=== PATIENT | male | born 1985 | race Caucasian/White ===

== ENCOUNTER 2022-04-14 15:58 | Inpatient (IN) | payer BC ==
[2022-04-14] MEDS ORDERED: SODIUM CHLORIDE 0.9% 500 ML INFUS.BAG IV ONE (17:08)
[2022-04-14] MEDS ORDERED: FAMOTIDINE 20 MG/50 ML IVPB 20 MG/50 ML MG IVPB ONE ×2 (17:09→17:39)
[2022-04-14 18:52] LABS: BASO % 0.8 % (0-2.0); EOS % 2.2 % (0-4.5); HEMOGLOBIN 15.1 GM/dL (11.7-16.9); LYMPH % 21.4 % (8-40); MCH 27.3 pg (25.7-33.7); MCHC 35.1 g/dl (32.0-35.9); MEAN CELL VOLUME 77.7 fl (80-96); MEAN PLT VOLUME 7.2 fl (7.5-11.1); MONO % 5.7 % (3.8-10.2); NEUT % 69.9 % (42.8-82.8); PLATELET COUNT 236 10^3/uL (134-434); RBC 5.53 M/mm3 (4.00-5.60); WHITE BLOOD COUNT 6.3 K/mm3 (4.0-10.0)
[2022-04-14 18:58] LABS: EPI CELLS 1 /uL (0-25.1); HYALINE CASTS 0 /uL (0-3.1); PH,URINE 6.5 (5.0-8.0); URINE APPEARANCE CLEAR; URINE BACTERIA 2 /uL (0-1359); URINE BILIRUBIN NEGATIVE (NEGATIVE); URINE COLOR YELLOW; URINE GLUCOSE (UA) NEGATIVE (NEGATIVE); URINE KETONE NEGATIVE (NEGATIVE); URINE LEUK ESTERASE NEGATIVE (NEGATIVE); URINE NITRITE NEGATIVE (NEGATIVE); URINE PROTEIN 1+ (NEGATIVE); URINE RBC 3 /uL (0-23.9); URINE UROBILINOGEN 0.2 mg/dL (0.2-1.0); URINE WBC 1 /uL (0-25.8)
[2022-04-14 19:14] LABS: ALBUMIN 4.4 g/dl (3.4-5.0); BLOOD UREA NITROGEN 14.1 mg/dL (7-18)
[2022-04-14 19:17] LABS: CREATININE 0.7 mg/dL (0.55-1.3)
[2022-04-14 19:18] LABS: BILIRUBIN,TOTAL 0.8 mg/dL (0.2-1); TOT PROT 8.2 g/dl (6.4-8.2)
[2022-04-14] MEDS ORDERED: ACETAMINOPHEN 1000 MG/100 ML BAG IVPB ONE (23:01)
[2022-04-14] MEDS ORDERED: morphine CARPU-JECT 4 MG/1 ML DISP.SYRIN IVPUSH ONE (23:02)
[2022-04-14] MEDS ORDERED: ACETAMINOPHEN INJECTION 100 ML IVPB ONE (23:05)
[2022-04-15] MEDS ORDERED: SODIUM CHLORIDE 0.9% 500 ML INFUS.BAG IV ONE (00:53)
[2022-04-15] MEDS: SODIUM CHLORIDE 1,000 ML IV SCH ×2 (03:27→10:59)
[2022-04-15 04:07] VITALS: BMI 30.7
[2022-04-15] MEDS ORDERED: ENOXAPARIN NA (PORCINE) 40 MG/0.4 ML DISP.SYRIN SQ SCH (10:00)
[2022-04-15 10:40] LABS: BASO % 0.7 % (0-2.0); EOS % 3.2 % (0-4.5); HEMATOCRIT 36.5 % (35.4-49); HEMOGLOBIN 12.7 GM/dL (11.7-16.9); LYMPH % 14.3 % (8-40); MCH 27.3 pg (25.7-33.7); MCHC 34.8 g/dl (32.0-35.9); MEAN CELL VOLUME 78.3 fl (80-96); MEAN PLT VOLUME 6.9 fl (7.5-11.1); MONO % 6.3 % (3.8-10.2); NEUT % 75.5 % (42.8-82.8); PLATELET COUNT 183 10^3/uL (134-434); RBC 4.66 M/mm3 (4.00-5.60); RDW 13.6 % (11.9-15.9); WHITE BLOOD COUNT 4.7 K/mm3 (4.0-10.0)
[2022-04-15 11:08] LABS: CALCIUM 8.7 mg/dL (8.5-10.1)
[2022-04-15 11:09] LABS: MAGNESIUM 2.1 mg/dL (1.8-2.4)
[2022-04-15 11:10] LABS: BLOOD UREA NITROGEN 11.2 mg/dL (7-18)
[2022-04-15 11:12] LABS: CREATININE 0.7 mg/dL (0.55-1.3); PHOSPHOROUS 2.8 mg/dL (2.5-4.9)
[2022-04-15 11:13] LABS: BILIRUBIN,TOTAL 0.5 mg/dL (0.2-1); TOT PROT 6.6 g/dl (6.4-8.2)
[2022-04-15 11:17] LABS: ALBUMIN 3.4 g/dl (3.4-5.0)
[2022-04-15 11:23] LABS: ERYTHROCYTE SEDIMENTATION RATE 59 mm/hr (0-10)
[2022-04-15] MEDS ORDERED: ACETAMINOPHEN 1000 MG/100 ML BAG IVPB PRN (17:11)
[2022-04-16] MEDS: SODIUM CHLORIDE 1,000 ML IV SCH ×2 (03:48→17:05)
[2022-04-16 08:58] VITALS: BP 124/69; PULSE 90; TEMP 98.1
[2022-04-16 09:52] LABS: BASO % 0.8 % (0-2.0); EOS % 3.1 % (0-4.5); HEMATOCRIT 37.4 % (35.4-49); HEMOGLOBIN 12.8 GM/dL (11.7-16.9); LYMPH % 16.8 % (8-40); MCH 26.8 pg (25.7-33.7); MCHC 34.1 g/dl (32.0-35.9); MEAN CELL VOLUME 78.6 fl (80-96); MEAN PLT VOLUME 7.3 fl (7.5-11.1); MONO % 4.6 % (3.8-10.2); NEUT % 74.7 % (42.8-82.8); PLATELET COUNT 204 10^3/uL (134-434); RBC 4.76 M/mm3 (4.00-5.60); RDW 13.8 % (11.9-15.9); WHITE BLOOD COUNT 4.1 K/mm3 (4.0-10.0)
[2022-04-16 10:15] LABS: BLOOD UREA NITROGEN 6.1 mg/dL (7-18); CALCIUM 8.9 mg/dL (8.5-10.1)
[2022-04-16 10:18] LABS: CREATININE 0.8 mg/dL (0.55-1.3)
[2022-04-16 11:52] LABS: CALCIUM 8.6 mg/dL (8.5-10.1)
[2022-04-16 11:53] LABS: ALBUMIN 3.5 g/dl (3.4-5.0); BLOOD UREA NITROGEN 5.4 mg/dL (7-18)
[2022-04-16 11:56] LABS: CREATININE 0.6 mg/dL (0.55-1.3)
[2022-04-16 11:58] LABS: BILIRUBIN,TOTAL 0.3 mg/dL (0.2-1); TOT PROT 6.9 g/dl (6.4-8.2)
[2022-04-19 16:08] LABS: ATYPICAL pANCA <1:20 titer (Neg:<1:20); C-ANCA <1:20 titer (Neg:<1:20)
== END 2022-04-16 18:57 | disposition home or self-care (01) | DRG 393 ==
LOC: JER 15:58 → JERBED 23:31 → J6S 04-15 02:22
PROVIDERS: ADMIT Hospitalist; ATTEND Internal Medicine
DX: K62.89 Other specified diseases of anus and rectum (principal); K85.90 Acute pancreatitis without necrosis or infection, unspecified; K64.4 Residual hemorrhoidal skin tags; K52.9 Noninfective gastroenteritis and colitis, unspecified; R74.8 Abnormal levels of other serum enzymes; K76.0 Fatty (change of) liver, not elsewhere classified
CPT/HCPCS: 36415; 74176-TC; 74182-TC; 76705-TC; 80048; 80053; 80061; 81003; 82272; 83520; 83540; 83550; 83631; 83690; 83735; 83993; 84100; 85025; 85651; 86140; 86256; 86671; 87086; 87324; 87449; 93005; 93010; 99285-25; A9579; C9803-CS; U0003; U0005

== ENCOUNTER 2023-06-01 11:43 | Day surgery (SDC) | payer BC ==
[2023-05-25 12:08] VITALS: BMI 32.5
[2023-06-01 14:22] VITALS: TEMP 98.1
[2023-06-01 14:26] VITALS: BP 117/69; PULSE 69; RESP 19
== END 2023-06-01 14:35 | disposition home or self-care (01) ==
LOC: FASU-ENDO 11:43
PROVIDERS: ATTEND Internal Medicine Gastroenterology
PROC: 0DBL8ZX Excision of Transverse Colon, Via Natural or Artificial Opening Endoscopic, Diagnostic (ICD-10-PCS; 2023-06-01)
PROC: 0DBN8ZX Excision of Sigmoid Colon, Via Natural or Artificial Opening Endoscopic, Diagnostic (ICD-10-PCS; 2023-06-01)
PROC: 0DBP8ZX Excision of Rectum, Via Natural or Artificial Opening Endoscopic, Diagnostic (ICD-10-PCS; 2023-06-01)
PROC: 0DBM8ZX Excision of Descending Colon, Via Natural or Artificial Opening Endoscopic, Diagnostic (ICD-10-PCS; 2023-06-01)
PROC: 0DBK8ZX Excision of Ascending Colon, Via Natural or Artificial Opening Endoscopic, Diagnostic (ICD-10-PCS; principal; 2023-06-01 13:18)
DX: Z87.19 Personal history of other diseases of the digestive system (principal); K64.1 Second degree hemorrhoids
CPT/HCPCS: 88305-TC